=== PATIENT | male | born 2000 | race Caucasian/White ===

== ENCOUNTER 2020-08-11 02:17 | Observation (INO) ==
--- NOTE | 2020-08-11 03:08 | History & Physical Report ---
Date of Service August 11, 2020 Assessment & Plan (1) Elevated troponin: 20 yo M PMHx mild intermittent asthma admitted for syncopal event with incidentally noted elevated troponin. Elevated troponin: Today was evaluated in ER for suspected esophageal spasm causing syncope vs. seizure, found to have elevated troponin and called back to ER. Patient does have a fairly robust family history of early CAD in two paternal uncles. Mother with a history of MVP. Patient has RSR' findings in V1-2, normal QTc, QRS interval 118 (?incomplete RBBB). Possibly elevated due to viral myocarditis (recently ill with viral syndrome) vs. ? seizure vs. other etiology. COVID 19 testing pending. Echo ordered for morning. Will trend troponins. Cardiology consult placed. Patient's mother would like to be called to be made aware of any findings. Syncope vs. seizure: Earlier today patient had an episode of questionable choking on water, and immediately following lost consciousness. Friend reports possible seizure activity (arm twitching). No seizure disorder history. No history of syncopal events with activity/sports. Echo as above in AM to r/o non-ischemic cardiomyopathy, viral cardiomyopathy, etc. Telemetry for continuous cardiac monitoring for arrhythmias. No EEG at this time, as given patient feels well now it would be unlikely to show pathology at this time. No anti-epileptic medications at this time; history not convincing for seizure and patient is without seizure history. Code Status: FULL CODE FEN/GI: NPO DVT ppx: SCDs in bed, ad dorita on demand Dispo: PCU for continuous cardiac monitoring given 20 yo with syncope and elevated troponin (2) Syncope: (3) Observed seizure-like activity: (4) Asthma: History of Present Illness Chief Complaint: syncope, elevated troponin Primary Care Provider: [facility], [place] 20 yo M PMHx mild intermittent asthma presented to ER following ? syncopal vs. seizure-like event this evening. He was drinking water and has a sensation of "his esophagus clamping down", and he felt as though he could not take a breath in. He recalls breathing out and then waking up on the floor several minutes later. His friend relayed that he may have had some shaking motions of his arms, but no incontinence and no tongue biting. In the ER he had a CT Head and CXR which did not have any acute findings, and he was sent home. After the patient went home troponin resulted as elevated to 0.112, no other abnormalities on labwork. EKG shows RSR' in V1 with QRS 118. Patient was asked to come back to ER for evaluation. On my interview patient denies active chest pain, SOB, headaches, dizziness, abdominal pain, nausea, recent fevers or chills. Does endorse URI 4 days ago, did have outpatient COVID 19 test which was negative. Has never had syncopal events with exercise or activity. No family history of HOCM, Aysha Danlos, Marfan's syndrome. Family history significant for early CAD (heart attacks in two paternal uncles in their 30s). Mother with a history of MVP. Maternal grandmother has a pacemaker for unknown reason. Per patient's mother, he was evaluated in the past for concern for long QT syndrome but after multiple EKGs he was determined to have normal QT. She does not recall him having an Echo in the past. Allergies Allergy/AdvReac Type Severity Reaction Status Date / Time No Known Allergies Allergy Verified 08/11/20 02:36 Home Medications Medication Instructions Recorded Confirmed Type ibuprofen 400 mg PO Q6H PRN 08/10/20 08/11/20 History albuterol sulfate 1 - 2 puff INHALATION Q4H PRN 08/11/20 08/11/20 History Past Med/Surg History Medical History Asthma Lumbar disc disease Family History (Updated 08/11/20 @ 03:04 by Saige Agosto DO) Uncle Coronary heart disease, Onset Age: 32 Uncle Coronary heart disease, Onset Age: 35 Father Dyslipidemia Social History Smoking Status: Never smoker Hx Alcohol Use: Yes Alcohol type: beer, wine and hard liquor Hx Substance Use: No Preferred Language: Tamazight Communication Ability: Effective Mrp Controller Required: No Beliefs That Will Affect Care: None Current Living Situation: Alone Feels Safe at Home: Yes Assistive Devices: None Review of Systems Review of Systems: All systems reviewed & are unremarkable except as noted in HPI & below Constitutional: no fever, no chills and no malaise Respiratory: no cough and no dyspnea Cardiovascular: no chest pain, no palpitations and no edema Gastrointestinal: no abdominal pain, no constipation and no diarrhea/loose stools Physical Exam Constitutional: WD/WN, vitals as above Eyes: PERRL, conjunctivae normal, anicteric sclerae ENMT: external ear and nose normal, oropharynx normal Neck: normal visual inspection Respiratory: normal respiratory effort, lungs clear to auscultation Cardiovascular: RRR, no murmur, no edema Gastrointestinal (Abdomen): normal bowel sounds, soft, nontender, no hepatosplenomegaly Musculoskeletal: no cyanosis or clubbing, extremities motor strength 5/5 Skin: no rashes, warm and dry Neurologic: AAOx3, normal speech. Bilateral UE, LE, and face without sensory or motor deficits. Psychiatric: A+Ox3, euthymic affect Results & Data Results & Data ([facility]) Vital Signs (Past 12 Hours) Vital Signs Temp Pulse Resp BP Pulse Ox 08/11/20 02:22 36.5 C 97 H 18 161/97 H 97 Code Status & VTE Plan VTE Prophylaxis Plan VTE Prophylaxis will be ordered: Yes Supervising Physician Co-Signing Physician Notes Patient seen and examined, chart reviewed, case discussed with Dr. Agosto and I agree with her assessment and plan as above. Briefly, patient is a 20yo male presenting after syncopal event - elevated troponin found on ER workup. Was worked up for possible long QT syndrome in the past as a child - found to be NEGATIVE for this condition by 2 specialists No personal history of cardiac disease, dizziness, syncope, palpitations +Family history of premature CAD in uncles - MIs in their 30's Recent viral illness. Covid NEGATIVE On exam patient is resting comfortably, NAD, tall and thin Skin - no rash HEENT - NC/AT, PERRL, Neck supple Heart - +S1/S2, regular, no m/r/g Lungs - CTA Abd - +BS, soft, NT/ND Ext - warm, well perfused, no clubbing/cyanosis or edema Neuro - no deficits Labs and images reviewed. Trop = 0.112 --> 0.125 EKG wtih SR at 65 with sinus arrhythmia, normal axis, OH=65, JLJ=860, IQi=958, RSR' morphology Assessment/Plan: 20yo male with history of mild intermittent asthma presenting after syncopal event, found to have elevated troponin. Ddx to include viral myocarditis, structural heart disease, ?arrhythmia -Telemetry -Trend troponin -2D echo -Cardiology consult appreciated POC - Mother - [phone] Father - [phone] Resident Activity Tracking Resident Involvement: Resident Care Provided Care Provided: Adult Hospital Medicine (1) Syncope Syncope type: unspecified Qualified Code(s): R55 - Syncope and collapse (2) Asthma Asthma complication type: uncomplicated Asthma persistence: intermittent Asthma severity: mild Qualified Code(s): J45.20 - Mild intermittent asthma, uncomplicated
[2020-08-11] MEDS ORDERED: ACETAMINOPHEN 325 MG TAB PO PRN (04:49)
[2020-08-11] MEDS ORDERED: ALBUTEROL HFA 8 GM INHALER INH PRN (04:49)
--- NOTE | 2020-08-11 04:50 | Billing Data ---
Date of Service August 11, 2020 Coding Level of Care Code 32335 OBS Care - Level 2
--- NOTE | 2020-08-11 09:40 | XCELERA ---
[id number]
[2020-08-11] MEDS ORDERED: OPTIRAY 320 125ml IV ONE (11:27)
--- NOTE | 2020-08-11 11:37 | CT Scan Report ---
CT ANGIOGRAM OF THE CHEST CLINICAL HISTORY: Syncope. COMPARISON STUDY: Chest x-ray dated 08/10/2020. TECHNIQUE: Following the IV administration of 120 cc of Optiray 320, CT angiogram of the chest was pe rformed from the upper abdomen to the thoracic inlet utilizing the pulmonary embolus protocol. Images are reviewed in the axial, sagittal, and coronal planes. 3-D MIPS images are created and assessed. I V contrast was administered without complication. A dose lowering technique was utilized adhering to the principles of ALARA. CT DOSE: 320.74 mGy.cm FINDINGS: Thyroid: Imaged portions of the thyroid gland are normal in size and attenuation. Thoracic aorta: The thoracic aorta is normal in caliber and demonstrates standard 3-vessel arch anato my. No dissection is seen. Pulmonary vasculature: The pulmonary trunk is normal in caliber. There are no filling defects identif ied in main, lobar, or segmental pulmonary branches to suggest pulmonary embolus. Heart: The heart is normal in size and without pericardial effusion. Lungs and pleural spaces: There is no airspace consolidation or pleural effusion. The trachea and baltazar tral airways are clear. Mild diffuse peribronchial thickening is observed. Mediastinum: There is no mediastinal lymphadenopathy. Caroline: Clear. Axillae: There is no axillary lymphadenopathy. Upper abdomen: Partially visualized upper abdominal viscera is within normal limits. Skeletal structures: No lytic or blastic bony lesions are seen. IMPRESSION: 1. There is no evidence of pulmonary embolus in the main, lobar, or segmental pulmonary arteries. 2. There is no airspace consolidation or pleural effusion. 3. Mild diffuse peribronchial thickening suggests bronchitis/reactive airway disease. Clinical correl ation will be required. ACT 112: Negative or not required by law. Electronically signed by: Atif Chino M.D. 08/11/2020 11:36 AM
--- NOTE | 2020-08-11 12:41 | Hospitalist Progress Note ---
Date of Service August 11, 2020 Assessment & Plan (1) Elevated troponin: Wilder Kimbrough is a 20-year-old male with PMH of mild intermittent asthma admitted for syncopal event with incidentally noted elevated troponin. Elevated troponin: - Was evaluated in ER for suspected esophageal spasm causing syncope vs. seizure, found to have elevated troponin and called back to ER. - Has family history of early CAD in two paternal uncles - Patient has RSR' findings in V1-2, normal QTc, QRS interval 118 (?incomplete RBBB)--per review of previous skip tracer records/EKGs, RSR' present for years - Echo today showing normal function - Troponin continuing to trend slightly up on 4 consecutive checks but has remained only mildly elevated - Cardiology consult placed, follow recs - Possibly elevated due to viral myocarditis (recently ill with viral syndrome)--COVID 19 negative - Lyme & anaplasmosis negative - Chest CTA negative for PE - Monitor overnight. - Will trend troponin tonight and in AM Syncopal episode - Episode of choking on water, and immediately following lost consciousness. Friend reports arm twitching but patient was immediately responsive upon awakening and no post-ictal period/confusion - No seizure disorder history. No history of syncopal events with activity/sports. - No EEG as seizure seems unlikely given description of event and patient with no further episodes so the study would be unlikely to prove useful - Urine drug screen negative - Head CT negative - Most likely cause is vasovagal - As above, echo normal - Telemetry with sinus arrhythmia this AM, which is common in young adults Code Status: FULL CODE FEN/GI: NPO DVT ppx: SCDs in bed, ad dorita on demand Dispo: PCU for continuous cardiac monitoring given 20 yo with syncope and elevated troponin (2) Syncope: (3) Observed seizure-like activity: (4) Asthma: Admission and Anticipated Discharge Date Admission Date: August 11, 2020 Supervising Physician Co-Signing Physician Notes Resident Physician Supervision Note: I independently interviewed and examined the patient and verified the hamilton history and physical, reviewed labs and image studies, discussed the case with the resident Dr. Taylor and agree with the findings and care plan. Subjective Patient seen at bedside at various points throughout the day with mother at his side. He denies any symptoms. No CP, palp, dizziness, headaches, fever, chills, SOB, cough. I discussed with mom that we have ruled out many serious causes of elevated troponin and at this point are awaiting it to downtrend prior to discharge. She understands this. Review of Systems Review of Systems: All systems reviewed & are unremarkable except as noted in Subjective Physical Exam Constitutional: WD/WN, vitals as above no acute distress Eyes: PERRL, conjunctivae normal, anicteric sclerae ENMT: external ear and nose normal, oropharynx normal Neck: normal visual inspection Respiratory: normal respiratory effort, lungs clear to auscultation no labored breathing Cardiovascular: RRR, no murmur, no edema Heart Sounds: normal S1 and normal S2 Gastrointestinal (Abdomen): normal bowel sounds, soft, nontender, no hepatosplenomegaly Musculoskeletal: no cyanosis or clubbing, extremities motor strength 5/5 Skin: no rashes, warm and dry Neurologic: patellar DTR's 2+ bilat, sensation intact Bilateral UE, LE, and face without sensory or motor deficits. Psychiatric: A+Ox3, euthymic affect Results & Data Results & Data ([facility]) Vital Signs (Past 12 Hours) Vital Signs Temp Pulse Pulse Resp BP BP Pulse Ox 08/11/20 12:19 36.6 C 62 18 121/68 98 08/11/20 08:17 36.5 C 60 18 115/66 99 08/11/20 08:00 53 L 08/11/20 04:40 36.5 C 57 L 16 116/68 98 08/11/20 04:30 52 L 18 106/50 L 100 08/11/20 03:17 100 08/11/20 02:22 36.5 C 97 H 18 161/97 H 97 Resident Activity Tracking Resident Involvement: Resident Care Provided Care Provided: Adult Hospital Medicine (1) Syncope Syncope type: unspecified Qualified Code(s): R55 - Syncope and collapse (2) Asthma Asthma complication type: uncomplicated Asthma persistence: intermittent Asthma severity: mild Qualified Code(s): J45.20 - Mild intermittent asthma, uncomplicated
[2020-08-11 13:08] LABS: Lyme Ab IgG w/WB Rflx Negative (Negative); Lyme Ab IgM w/WB Rflx Negative (Negative)
[2020-08-11 15:19] LABS: Amphetamines+Metham, Urine Neg (Neg); Barbiturates, Urine Neg (Neg); Benzodiazepine, Urine Neg (Neg); Cocaine, Urine Neg (Neg); MDMA (Ecstacy), Urine Neg (Neg); Methadone, Urine Neg (Neg); Opiate, Urine Neg (Neg); Phencyclidine, Urine Neg (Neg)
--- NOTE | 2020-08-11 18:26 | Cardiology Consultation ---
Date of Consultation August 11, 2020 Assessment & Plan (1) Syncope: At this point there seems to be no obvious cause of syncope other than a vagal event. There is no evidence of a pulmonary embolism, there is no evidence of a tacky arrhythmia and it seems clear that he does not have long QT syndrome. I would therefore not treat this specifically although if it happens again we need to consider tilt testing or long-term monitoring. I would not do that as yet. (2) Elevated troponin: The elevated troponin is worrisome, it is suggestive of a myocarditis. The most likely cause of that would be his viral infection last week. The fourth troponin is still elevated suggesting ongoing injury. I would continue to monitor troponins until a downward trend is detected. I do not know of any specific treatment for myocarditis, he is not having symptoms so the use of colchicine would probably not be helpful, steroids and nonsteroidals are contraindicated. History of Present Illness Reason for Consultation: Syncope, elevated troponin Attending Physician: Lois Vega MD History of Present Illness This is a 20-year-old student who has a history of evaluation for long QT syndrome however that evidently was identified on an athletic evaluation by electrocardiography and subsequently extensively evaluated by a pediatric nurse practitioner and felt not to be present. He did have a viral type illness 1 week prior to presentation. His presentation was prompted by an episode of syncope while eating. Evidently he was eating, had some chest discomfort from swallowing and had a brief witnessed syncopal event. Evidently some brief seizure-like activity was identified although it was probably not a seizure, he quickly regained consciousness and had no postictal state or other sequelae from the episode. He may have struck his face under his left eye as he has a omid in that location. Evaluation emergency room consisted of cardiac enzymes which were slightly elevated. He was actually sent home, called back in, and subsequent troponin measurements showed a gradually increasing level. Echocardiography was unremarkable, electrocardiography showed an incomplete right bundle branch block pattern which initially was concerning however once records from his prior evaluation for long QT were located it was present on that electrocardiogram as well. A chest CT was negative for pulmonary embolism and titers for Lyme and anaplasmosis were negative. He had been feeling well since admission to the hospital. He had no chest discomfort, no further lightheadedness, dizziness, presyncope or syncope and no specific complaints. He had no GI symptoms. Allergies Allergy/AdvReac Type Severity Reaction Status Date / Time No Known Allergies Allergy Verified 08/11/20 02:36 Home Medications Medication Instructions Recorded Confirmed Type ibuprofen 400 mg PO Q6H PRN 08/10/20 08/11/20 History albuterol sulfate 1 - 2 puff INHALATION Q4H PRN 08/11/20 08/11/20 History Patient History Medical History Asthma Lumbar disc disease Family History (Updated 08/11/20 @ 03:04 by Saige Agosto DO) Uncle Coronary heart disease, Onset Age: 32 Uncle Coronary heart disease, Onset Age: 35 Father Dyslipidemia Social History Smoking Status: Never smoker Hx Alcohol Use: Yes Alcohol type: beer, wine and hard liquor Hx Substance Use: No Preferred Language: Slovak Communication Ability: Effective Shipping Coordinator Required: No Beliefs That Will Affect Care: None Current Living Situation: Alone Feels Safe at Home: Yes Assistive Devices: None Review of Systems Review of Systems: All systems reviewed & are unremarkable except as noted in HPI & below Physical Exam Physical Exam: Constitutional: Alert, cooperative and in no distress. HEENT: Unremarkable Neck: No jugular venous distention, carotid pulses are normal and equal bilaterally without bruits. Pulmonary: Clear to auscultation bilaterally. Cardiac: Regular rhythm with no murmur, gallop or rub. Abdomen: Soft, nontender with normal bowel sounds. Extremities: No edema. Distal pulses intact. Neurologic: No focal findings. Gait is steady. Skin: No rash, ecchymoses or petechiae. Results & Data ([facility]) Vital Signs (Past 12 Hours) Vital Signs Temp Pulse Pulse Resp BP Pulse Ox 08/11/20 16:26 36.8 C 62 16 125/75 99 08/11/20 15:54 53 L 08/11/20 12:19 36.6 C 62 18 121/68 98 08/11/20 08:17 36.5 C 60 18 115/66 99 08/11/20 08:00 53 L Laboratory Results Cardiac Enzymes 08/11/20 08/11/20 08/11/20 Range/Units 08:56 14:26 20:41 Troponin I 0.148 H* 0.177 H* 0.190 H* (0-0.045) ng/ml 08/12/20 Range/Units 06:21 Troponin I 0.183 H* (0-0.045) ng/ml Intake and Output 08/11/20 08/12/20 08/12/20 22:59 06:59 14:59 Intake Total 120 / 520 200 / 520 200 / 200 Balance 120 / 520 200 / 520 200 / 200 Intake: Oral 120 / 520 200 / 520 200 / 200 Other: # Unmeasured Voids 2 1 Weight 75 kg Weight Measurement Method Built in [facility] Diagnostic Findings Telemetry: Sinus rhythm and sinus bradycardia, no significant arrhythmia PG Care Time/CCT Total # of Minutes Spent Total Time Spent with Patient: Total time spent is greater than 50% in coordination of care (as documented) at patient's floor/unit and/or counseling patient: Coding Level of Care Code 15007 Inpt Consult Level 4 Diagnoses Syncope R55 Syncope type: vasovagal syncope Elevated troponin R77.8 (1) Syncope Syncope type: vasovagal syncope Qualified Code(s): R55 - Syncope and collapse
--- NOTE | 2020-08-12 07:40 | Hospitalist Progress Note ---
Date of Service August 12, 2020 Assessment & Plan (1) Elevated troponin: Wilder Kimbrough is a 20-year-old male with PMH of mild intermittent asthma admitted for syncopal event with incidentally noted elevated troponin. Elevated troponin - likely secondary to viral myocarditis - Was evaluated in ER for suspected esophageal spasm causing syncope vs. seizure, found to have elevated troponin and called back to ER. 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, RSR' present for years - Echo 08/12 showing normal biventricular function without WMAs - Urine drug screen negative - Troponin on admission 0.112 --> max 0.19 at 08/11 @ 2000hrs - Cardiology consult placed, follow recs - Possibly elevated due to viral myocarditis (recently ill with viral syndrome)--COVID 19 negative - Lyme & anaplasmosis negative - Chest CTA negative for PE (obtained for incomplete RBBB and syncopal episode + chest pain) - Trend troponin -- once displaying persistent downtrend, anticipate possible d/c - Continue CCM while here Syncopal episode - Episode of choking on water, and immediately following lost consciousness. Friend reports arm twitching but patient was immediately responsive upon awakening and no post-ictal period/confusion - Work-up significant for following: - No seizure disorder history. No history of syncopal events with activity/sports. - UDS negative - Head CT negative - Echo WNL - Hold from EEG at this time -- given history, seems unlikely syncopal episode represented seizure. No c/f subclinical seizure at present. - Most likely cause is vasovagal - If occurs in future again, consider tilt testing or event monitoring Code Status: FULL CODE FEN/GI: NPO DVT ppx: SCDs in bed, ad dorita on demand Dispo: PCU for continuous cardiac monitoring given 20 yo with syncope and elevated troponin (2) Syncope: (3) Observed seizure-like activity: (4) Asthma: Admission and Anticipated Discharge Date Admission Date: August 11, 2020 Results & Data Results & Data ([facility]) Vital Signs (Past 12 Hours) Vital Signs Temp Pulse Resp BP Pulse Ox 08/12/20 03:23 36.4 C L 57 L 20 120/60 97 08/11/20 22:47 36.6 C 60 19 125/74 98 08/11/20 20:13 36.7 C 63 20 111/63 97 Resident Activity Tracking Resident Involvement: Resident Care Provided Care Provided: Adult Hospital Medicine (1) Syncope Syncope type: vasovagal syncope Qualified Code(s): R55 - Syncope and collapse (2) Asthma Asthma severity: mild Asthma persistence: intermittent Asthma complication type: uncomplicated Qualified Code(s): J45.20 - Mild intermittent asthma, uncomplicated
--- NOTE | 2020-08-12 15:56 | Discharge Summary ---
Date of Service August 12, 2020 Admission HPI Per Admitting Provider 20 yo M PMHx mild intermittent asthma presented to ER following ? syncopal vs. seizure-like event this evening. He was drinking water and has a sensation of "his esophagus clamping down", and he felt as though he could not take a breath in. He recalls breathing out and then waking up on the floor several minutes later. His friend relayed that he may have had some shaking motions of his arms, but no incontinence and no tongue biting. In the ER he had a CT Head and CXR which did not have any acute findings, and he was sent home. After the patient went home troponin resulted as elevated to 0.112, no other abnormalities on labwork. EKG shows RSR' in V1 with QRS 118. Patient was asked to come back to ER for evaluation. On my interview patient denies active chest pain, SOB, headaches, dizziness, abdominal pain, nausea, recent fevers or chills. Does endorse URI 4 days ago, did have outpatient COVID 19 test which was negative. Has never had syncopal events with exercise or activity. No family history of HOCM, Aysha Danlos, Marfan's syndrome. Family history significant for early CAD (heart attacks in two paternal uncles in their 30s). Mother with a history of MVP. Maternal grandmother has a pacemaker for unknown reason. Per patient's mother, he was evaluated in the past for concern for long QT syndrome but after multiple EKGs he was determined to have normal QT. She does not recall him having an Echo in the past. Admission Exam Per Admitting Provider Constitutional: WD/WN, vitals as above Eyes: PERRL, conjunctivae normal, anicteric sclerae ENMT: external ear and nose normal, oropharynx normal Neck: normal visual inspection Respiratory: normal respiratory effort, lungs clear to auscultation Cardiovascular: RRR, no murmur, no edema Gastrointestinal (Abdomen): normal bowel sounds, soft, nontender, no hepatosplenomegaly Musculoskeletal: no cyanosis or clubbing, extremities motor strength 5/5 Skin: no rashes, warm and dry Neurologic: AAOx3, normal speech. Bilateral UE, LE, and face without sensory or motor deficits. Psychiatric: A+Ox3, euthymic affect Principal Diagnosis Syncope Elevated Troponin - possibly due to mild myocarditis Discharge Exam Constitutional Well-appearing 20 year old male lying back in his hospital bed with Mom at the bedside. Freely conversive throughout discussion. NAD. Respiratory normal respiratory effort, lungs clear to auscultation Cardiovascular RRR, no murmur, no edema Extremities: normal capillary refill; no edema Gastrointestinal (Abdomen) normal bowel sounds, soft, nontender, no hepatosplenomegaly Psychiatric A+Ox3, euthymic affect Discharge Data Allergies Allergy/AdvReac Type Severity Reaction Status Date / Time No Known Allergies Allergy Verified 08/11/20 02:36 Consultations 08/11/20 02:24 ED Decision to Admit Stat 08/11/20 04:49 Consult Cardiology Routine Ordered Studies CT HEAD W/O CONTRAST (08/10) HISTORY: syncope eval for bleed TECHNIQUE: Multiaxial CT images of the head were performed without the use of intravenous contrast. Automated exposure control was utilized for this study. A dose lowering technique was utilized adhering to the principles of ALARA. Comparison: None. Findings: The paranasal sinuses and mastoid air cells are clear. The calvarium and skull base are intact. The ventricles and sulci are within normal limits. There is no mass, hematoma, midline shift, or acute infarct. Impression: No acute intracranial abnormality. XR chest 2V PA/lateral (08/10) CLINICAL HISTORY: Chest pain. Evaluate for pneumonia. COMPARISON STUDY: No previous studies for comparison. FINDINGS: Lung volumes are normal. Lungs are clear. There is no pneumothorax or pleural effusion. Cardiac size is normal. Mediastinal contours are normal. There is no evidence for pulmonary edema. There is slight interstitial thickening, pr obably within normal limits. IMPRESSION: 1. No consolidation. 2. Slight interstitial prominence, probably within normal limits. CT ANGIOGRAM OF THE CHEST (08/11) CLINICAL HISTORY: Syncope. COMPARISON STUDY: Chest x-ray dated 08/10/2020. TECHNIQUE: Following the IV administration of 120 cc of Optiray 320, CT angiogram of the chest was performed from the upper abdomen to the thoracic inlet utilizing the pulmonary embolus protocol. Images are reviewed in the axial, sagittal, and coronal planes. 3-D MIPS images are created and assessed. IV contrast was administered without complication. A dose lowering technique was utilized adhering to the principles of ALARA. CT DOSE: 320.74 mGy.cm FINDINGS: Thyroid: Imaged portions of the thyroid gland are normal in size and attenuation. Thoracic aorta: The thoracic aorta is normal in caliber and demonstrates standard 3-vessel arch anatomy. No dissection is seen. Pulmonary vasculature: The pulmonary trunk is normal in caliber. There are no filling defects identified in main, lobar, or segmental pulmonary branches to suggest pulmonary embolus. Heart: The heart is normal in size and without pericardial effusion. Lungs and pleural spaces: There is no airspace consolidation or pleural effusion. The trachea and central airways are clear. Mild diffuse peribronchial thickening is observed. Mediastinum: There is no mediastinal lymphadenopathy. Caroline: Clear. Axillae: There is no axillary lymphadenopathy. Upper abdomen: Partially visualized upper abdominal viscera is within normal limits. Skeletal structures: No lytic or blastic bony lesions are seen. IMPRESSION: 1. There is no evidence of pulmonary embolus in the main, lobar, or segmental pulmonary arteries. 2. There is no airspace consolidation or pleural effusion. Echocardiogram (TTE Complete) (08/11) LV systolic function is normal No regional wall motion abnormalities noted. Ejection Fraction = 55-60% No significant valvular pathology No prior study for comparison LABS - Lyme IgG, IgM Ab: Negative - Anaplasma Smear: No intracytoplasmic inclusions detected - UDS: Plummer-negative Hospital Course (1) Elevated troponin: Wilder Kimbrough is a 20-year-old male with PMH of mild intermittent asthma who was admitted for a syncopal event and elevated troponins. He remained hemodynamically stable throughout his stay. Elevated troponin - likely secondary to viral myocarditis - Wilder was evaluated in ER for suspected esophageal spasm (which he reports having occasionally with eating) causing syncope vs. seizure, and later found to have elevated troponin. He was thereafter called back to ER. - His work-up was significant for following: - Has family history of early CAD in two paternal uncles - Patient has RSR' findings in V1-2, normal QTc, QRS interval 118 (incomplete RBBB) -- on records received from [facility] ([facility]), appears this has been present for many years - Echo 08/12 demonstrated normal biventricular function without WMAs - Urine drug screen negative - Troponin on admission 0.112 --> max 0.19 at 08/11 @ 2000hrs with subsequent downtrend prior to discharge - Cardiology consult was placed, insight and recommendations were appreciated: - Troponin elevation abnormal; suspect his elevation was due to possible viral myocarditis (recently ill with viral syndrome; COVID-19 screen was negative) - Lyme & anaplasmosis screens were obtained given bundle branch delay -- returned negative - Chest CTA negative for PE (obtained for incomplete RBBB and syncopal episode + chest pain) - Demonstrated downtrending from peak prior to discharge - Activity restrictions advised prior to discharge: abstain from moderate- strenuous physical activity - Will require a follow-up with cardiology in approximately 2-4 weeks to review this visit Syncopal Episode - likely from a profound vasovagal response - Reported sensation of significant pressure while drinking water, and immediately lost consciousness. His friend reported that his arm was twitching during this episode. Patient was immediately responsive upon awakening with no [id number] confusion - Work-up significant for following: - No seizure disorder history. No history of syncopal events with activity/sports. - Patient has been worked up for Long QT in the past (>5 years ago). Records from OSH received and reviewed by Cardiology service. No evidence of prolonged QT while here. - UDS negative - Head CT negative - Echo WNL - Continuous cardiac monitoring while hospitalized insignificant for any arrhythmias or rate concerns - EEG was not performed while here -- given history, seems unlikely this episode represented a seizure. - Suspect this episode of syncope was due to profound vasovagal response - If occurs in future again, consider tilt testing or event monitoring. If seizure activity observed, proceed with neurologic consultation and work-up. (2) Syncope: (3) Asthma: Total Time Total Time Spent Total Time Spent (In Minutes): 30 minutes Discharge Plan Discharge Items Patient Disposition: Home - Self-Care Reason For Visit: ELEVATED TROPONIN Discharge Diagnosis: syncope elevated troponin - possibly due to viral myocarditis Condition on Discharge: Good Activity: Per Instructions section Non-emergency contact: Primary Care Provider and Hospitalist Call non-emergency contact if: your symptoms worsen, your pain is concerning for you and your temperature is above 101 Follow-up/Referrals: [place],[facility] [Primary Care Provider] - Diet: Regular Addtl Attending Provider Instructions: You were seen at [facility] from 08/10 - 08/12 for evaluation of syncope and elevated cardiac enzymes (troponin). During your stay here, you underwent several tests to determine the cause of your syncope and elevated troponins. Your imaging scans and laboratories (with exception of troponins) returned normal. Your echocardiogram (heart ultrasound) similarly demonstrated normal function in all of the chambers of your heart. While we noticed some conduction abnormalities in the right side of your heart, these have been seen in ECGs from several years ago, too - as such, it is likely not new and was not contributory to the episode of fainting. We followed your troponins closely throughout your stay and cardiology provided recommendations. Your troponins were mildly, but still abnormally, elevated throughout your stay. Prior to your discharge, your troponins did demonstrate an initial trend downwards from your peak. Based on your work-up and symptoms, the source of these troponins is likely from your recent upper respiratory infection (viruses can cause a small degree of cardiac damage and elevated troponins). There was no evidence of pulmonary emboli or aortic problems. The ultrasound of your heart similarly demonstrated normal findings. At the recommendation of cardiology, please refrain from moderate-strenuous physical activity until cleared by your physician. This was recommended out of precaution as your heart recovers. There was not an indication for new medications at the time of your admission or discharge. Please follow-up with your primary care physician within 1 week to review this visit. We recommend following up with cardiology within 2-4 weeks of discharge. If you experience another episode of passing out (syncope), or chest pain, palpitations, shortness of breath, new swelling in your legs, or any other worrisome symptoms, please seek medical attention for evaluation. If your symptoms are severe or recur, please report to the nearest emergency room or call 911. Pending Studies at Discharge: No Stand-Alone Forms: My [facility], Smoking Cessation Medications and DC Order Prescriptions: Continued ibuprofen 200 mg Tablet 400 mg PO Q6H PRN (Reason: Pain) RF: 0 albuterol sulfate 90 mcg/actuation HFA aerosol inhaler 1 - 2 puff INHALATION Q4H PRN (Reason: Shortness Of Breath Or Wheezing) RF: 0 Discharge Orders: Discharge Order (Routine); Ordered 08/12/20 Ordered By: Judson Valladares Admission Data Admit Date/Time: 08/11/20 02:59 Attending Provider: Lois Vega Admit Provider: Saige Agosto Primary Care Provider: [place],[facility] Other Providers: Tigist Gill Charles C. Other Interventions: Discharge Summary Assessment (RN) Last Done: 08/12/20 10:53 Supervising Physician Co-Signing Physician Notes Resident Physician Supervision Note: I independently interviewed and examined the patient and verified the hamilton history and physical, reviewed labs and image studies, discussed the case with the resident Dr. Valladares and agree with the findings and care plan. Resident Activity Tracking Resident Involvement: Resident Care Provided Care Provided: Adult [facility]
--- NOTE | 2020-08-13 06:26 | Electrocardiogram Report ---
Test Reason : Blood Pressure : / mmHG Vent. Rate : 054 BPM Atrial Rate : 054 BPM P-R Int : 142 ms QRS Dur : 106 ms QT Int : 446 ms P-R-T Axes : 075 083 079 degrees QTc Int : 422 ms Sinus bradycardia Otherwise normal ECG When compared with ECG of 10-AUG-2020 20:35, RSR' pattern in V1 is no longer Present Confirmed by Dwight Paige ([id number]) on 08/13/2020 6:26:39 AM Referred By: REFERRED SELF Confirmed By:Dwight Paige
== END 2020-08-12 12:11 | disposition home or self-care (01) ==
LOC: ED 02:17 → 2S 02:17 → SUATTDRO 02:59 → 2S 04:30